=== PATIENT | male | born 1980 | race Caucasian/White ===

== ENCOUNTER 2017-06-19 13:16 | Emergency (ER) | payer OTHER, SELFPAY ==
[2017-06-19 14:32] LABS: #Basophils 0.1 thou/uL (0.0-0.2); #Eosinphils 0.2 thou/uL (0.0-0.7); #Lymphocytes 1.4 thou/uL (1.20-3.40); #Monocytes 0.9 thou/uL (0.11-0.59); #Neutrophils 5.6 thou/uL (1.40-6.50); %Basophils 0.7 % (0.0-1.0); %Eosinophils 2.8 % (0.0-10.0); %Lymphocytes 17.1 % (21.0-51.0); %Neutrophils 68.4 % (42.0-75.0); Hemoglobin 15.1 g/dL (14.0-18.0); Mean Corpuscular HGB CONC 34.3 g/dL (32.0-36.0); Mean Corpuscular Volume 93.2 fl (80.0-94.0); Mean Platelet Volume 7.7 fL (7.4-10.4); Platelet Count 180 thou/uL (130-400); RBC Distribution Width 12.1 % (11.5-14.5); Red Blood Cell (RBC) Count 4.72 mill/uL (4.70-6.10); White Blood Cell (WBC) Count 8.2 thou/uL (4.8-10.8)
--- NOTE | 2017-06-19 14:55 | RAD ---
CHEST TWO VIEWS: HISTORY: Cough. COMPARISON: 06/22/2011 FINDINGS: The cardiac silhouette and pulmonary vasculature are unremarkable. The mediastinum is midline. Lung s remain hyperinflated with flattening of the hemidiaphragms. No confluent air space consolidation, pneumothorax, or pleural fluid evident. IMPRESSION: Pulmonary hyperinflation is stable. No new abnormalities are apparent. POS: [facility]
[2017-06-19 14:58] LABS: ALT (SGPT) 25 U/L (8-55); AST (SGOT) 19 U/L (5-34); Albumin 4.2 g/dL (3.5-5.0); Alkaline Phosphatase 75 U/L (40-150); Anion Gap 9 mmol/L (10-20); BUN (Urea Nitrogen) 11 mg/dL (8.9-20.6); Bilirubin, Total 0.4 mg/dL (0.2-1.2); Calc. Creatinine Clearance 0 mL/min (70-130); Calcium 9.7 mg/dL (7.8-10.44); Carbon Dioxide 31 mmol/L (22-29); Chloride 102 mmol/L (98-107); Estimated GFR-MDRD 75; Globulin 2.6 g/dL (2.4-3.5); Glucose 88 mg/dL (70-105); Potassium 3.9 mmol/L (3.5-5.1); Protein, Total 6.8 g/dL (6.0-8.3); Sodium 138 mmol/L (136-145)
[2017-06-19 15:02] LABS: CKMB 2.1 ng/mL (0-6.6); Troponin I Less than 0.010 ng/mL (< 0.028)
[2017-06-19] MEDS ORDERED: Ketorolac Tromethamine 30 MG/ML VIAL ONE (15:28)
[2017-06-19] MEDS ORDERED: Ondansetron HCl/PF 4 MG/2 ML Vial ONE (15:28)
[2017-06-19] MEDS ORDERED: Dexamethasone 10 MG/ML VIAL ONE (16:22)
[2017-06-19] MEDS ORDERED: Acetaminophen/Codeine 30-300mg Tablet ONE (16:47)
== END 2017-06-19 16:55 | disposition home or self-care (01) ==
LOC: ERS 13:16
DX: J20.9 Acute bronchitis, unspecified (principal); R51 Headache; J45.909 Unspecified asthma, uncomplicated; F31.9 Bipolar disorder, unspecified; F41.9 Anxiety disorder, unspecified; F17.210 Nicotine dependence, cigarettes, uncomplicated; Z87.01 Personal history of pneumonia (recurrent)
CPT/HCPCS: 71046; 80053; 82553; 83735; 84484; 85025; 93005; 96374; 96375; J1100; J1885; J2405

== ENCOUNTER 2017-11-08 13:09 | Emergency (ER) | payer BC, SELFPAY ==
[2017-11-08] MEDS ORDERED: Ondansetron ODT 4 MG TAB ONE (14:00)
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
== END 2017-11-08 14:25 | disposition home or self-care (01) ==
LOC: ERS 13:09
DX: S61.452A Open bite of left hand, initial encounter (principal); J45.909 Unspecified asthma, uncomplicated; F41.9 Anxiety disorder, unspecified; F31.9 Bipolar disorder, unspecified; F17.210 Nicotine dependence, cigarettes, uncomplicated; W54.0XXA Bitten by dog, initial encounter
CPT/HCPCS: 99406; Q0162

== ENCOUNTER 2018-07-17 02:01 | Emergency (ER) | payer BC ==
[2018-07-17 02:47] LABS: #Basophils 0.1 thou/uL (0.0-0.2); #Eosinphils 0.4 thou/uL (0.0-0.7); #Lymphocytes 2.2 thou/uL (1.20-3.40); #Monocytes 0.7 thou/uL (0.11-0.59); #Neutrophils 3.9 thou/uL (1.40-6.50); %Basophils 0.8 % (0.0-1.0); %Eosinophils 5.5 % (0.0-10.0); %Monocytes 9.6 % (0.0-10.0); Hemoglobin 14.6 g/dL (14.0-18.0); Mean Corpuscular HGB CONC 34.6 g/dL (32.0-36.0); Mean Corpuscular Hemoglobin 32.5 pg (27.0-31.0); Mean Corpuscular Volume 93.7 fL (78.0-98.0); Mean Platelet Volume 8.7 fL (7.4-10.4); Platelet Count 165 thou/uL (130-400); RBC Distribution Width 11.5 % (11.5-14.5); Red Blood Cell (RBC) Count 4.49 mill/uL (4.70-6.10); White Blood Cell (WBC) Count 7.3 thou/uL (4.8-10.8)
[2018-07-17 03:03] LABS: ALT (SGPT) 17 U/L (8-55); AST (SGOT) 24 U/L (5-34); Albumin 4.3 g/dL (3.5-5.0); Alkaline Phosphatase 54 U/L (40-150); Anion Gap 13 mmol/L (10-20); BUN (Urea Nitrogen) 16 mg/dL (8.9-20.6); Bilirubin, Total 0.5 mg/dL (0.2-1.2); CK (CPK) 433 U/L (30-200); Calc. Creatinine Clearance 0 mL/min (70-130); Calcium 9.5 mg/dL (7.8-10.44); Carbon Dioxide 23 mmol/L (22-29); Chloride 106 mmol/L (98-107); Estimated GFR-MDRD 69; Globulin 2.3 g/dL (2.4-3.5); Glucose 108 mg/dL (70-105); Potassium 3.6 mmol/L (3.5-5.1); Protein, Total 6.6 g/dL (6.0-8.3); Sodium 138 mmol/L (136-145)
--- NOTE | 2018-07-17 07:48 | RAD ---
SINGLE VIEW OF THE CHEST: COMPARISON: 09/29/2010. HISTORY: Chest pain. FINDINGS: Single view of the chest shows a normal sized cardiomediastinal silhouette. There is no evidence of c onsolidation, mass, or pleural effusion. The bones are unremarkable. IMPRESSION: No evidence of acute cardiopulmonary disease. POS: [facility]
== END 2018-07-17 04:00 | disposition home or self-care (01) ==
LOC: ERS 02:01
DX: R07.9 Chest pain, unspecified (principal); F31.9 Bipolar disorder, unspecified; F41.9 Anxiety disorder, unspecified; J45.909 Unspecified asthma, uncomplicated; F17.210 Nicotine dependence, cigarettes, uncomplicated
CPT/HCPCS: 36415; 71045; 80053; 82550; 83690; 84484; 85025; 93005

== ENCOUNTER 2018-12-07 12:13 | Outpatient (CLI) | payer BC ==
--- NOTE | 2018-12-07 13:26 | RAD ---
LUMBAR SPINE 2 TO 3 VIEWS: INDICATION: Post laminectomy syndrome of the lumbar region. FINDINGS: There is mild end plate degenerative change at multiple levels of the lumbar spine without compressio n fracture or significant subluxation. Mild facet sclerosis at multiple levels is present. There is slight narrowing of the L4-5 disk space. IMPRESSION: Mild degenerative change of the lumbar spine, without acute compression fracture or subluxation. POS: [facility]
--- NOTE | 2018-12-07 13:38 | MRI ---
CERVICAL SPINE MRI NONCONTRAST: INDICATION: Cervical radicular pain. FINDINGS: Craniocervical junction is intact. Imaged posterior fossa contents are unremarkable. No significant central canal stenosis of C1-2. C2-3: There is a mild right asymmetric disk-osteophyte complex with slight narrowing of the central canal in the right paracentral zone and mild right ventral hemicord flattening. No high-grade forami nal stenosis. C3-4: Broad-based disk-osteophyte results in mild narrowing of the central canal. There is bilatera l uncinate process hypertrophy with mild left and minimal right neural foraminal narrowing. C4-5: There is a right asymmetric broad-based disk-osteophyte with mild narrowing of the central can al and mild ventral cord effacement. Mild to moderate right neural foraminal narrowing is present. There is no significant left foraminal stenosis. C5-6: Broad-based disk-osteophyte with mild narrowing of the central canal and mild ventral cord eff acement. There is mild right neural foraminal narrowing. No significant left foraminal stenosis. C6-7: Right asymmetric broad-based disk-osteophyte with mild narrowing of the central canal. There is moderate right and mild left neural foraminal narrowing. C7-T1: No high-grade central canal or neural foraminal stenosis. There is no significant intrinsic cord signal abnormality or expansile process of the cervical spinal cord identified. IMPRESSION: Multilevel mild degenerative disk changes which result in central canal stenosis, mild ventral cord e ffacement, and multilevel neural foraminal stenosis as outlined above. POS: [facility]
--- NOTE | 2018-12-07 14:12 | MRI ---
MRI LUMBAR SPINE NONCONTRAST: HISTORY: Status post laminectomy syndrome of the lumbar region. COMPARISON: Prior MRI performed in [place] is not available. FINDINGS: Appropriate T1 marrow signal intensity of the lumbar vertebrae. Lumbar spine vertebral body height i s maintained. No fracture. STIR hyperintensity to suggest vertebral body edema or ligamentous. Appropriate signal intensity of the paraspinal muscles. Appropriate signal intensity of the solid org ans. Conus medullaris terminates at the inferior aspect of L1. T12-L1:No significant central canal stenosis or significant neural foraminal narrowing. L1-L2:Adequate disc hydration. Minimal narrowing of the left subarticular zone due to posterior eleme nt hypertrophy and disc material. No significant obscuration the traversing left L2 nerve root. Right subarticular zone is unremarkable. No significant stenosis of the thecal sac. Bilaterally, neur al foramina are patent. L2-L3:Adequate disc hydration. Generalized disc bulge, ligament flavum thickening and facet result mi nimal central disc. Bilaterally, neural foramina pain. L3-L4:Adequate disc hydration. No significant loss of disc space height. Generalized disc bulge, liga ment flavum thickening and facet result in minimal central canal stenosis. Minimal flattening the ventral thecal sac. Small amount of fluid in the right facet joint. Bilaterally, neural foramina are patent. L4-L5:Desiccation with moderate loss of disc space height. Broad-based disc bulge, ligament flavum th ickening and facet result in mild central canal stenosis. There is narrowing of both subarticular zones with disc material abutting but does not obscuring the traversing right L5 nerve root. Partial obscuration the traversing left L5 nerve root. There is a T2 hyperintensity along the left ligament flavum measuring 0.5 cm. A small component of cystic degeneration is favored. Moderate right and [id number] left foraminal narrowing. L5-S1:Adequate disc hydration. No significant canal stenosis. Neural foramina are patent. IMPRESSION: Degenerative disc disease at L4-L5 as described above. There is mild central canal stenosis. Narrowin g of both subarticular zones, right greater than left. Partial obscuration of traversing left L5 nerve root. Transcribed Date/Time: 12/07/2018 3:17 PM
== END 2018-12-07 12:14 | disposition home or self-care (01) ==
LOC: BICMRI 12:13
PROVIDERS: ATTEND Family Medicine
DX: M96.1 Postlaminectomy syndrome, not elsewhere classified (principal); M47.816 Spondylosis without myelopathy or radiculopathy, lumbar region; M51.36 Other intervertebral disc degeneration, lumbar region; M48.061 Spinal stenosis, lumbar region without neurogenic claudication; M50.10 Cervical disc disorder with radiculopathy, unspecified cervical region; M48.02 Spinal stenosis, cervical region
CPT/HCPCS: 72100; 72141; 72148

== ENCOUNTER 2019-08-31 16:33 | Emergency (ER) | payer BC, SELFPAY ==
--- NOTE | 2019-08-31 17:25 | RAD ---
THREE VIEWS OF THE SACRUM/COCCYX 08/31/19 COMPARISON: None. HISTORY: Tailbone pain following a fall. FINDINGS: The pelvic ring appears intact. Mild degenerative changes of the pubic symphysis. No widening or the sacroiliac joints of the pubic symphysis. No displaced fracture or dislocation. IMPRESSION: No acute osseous abnormality. POS: [facility]
--- NOTE | 2019-08-31 17:26 | RAD ---
LUMBAR SPINE THREE VIEWS: 08/31/19 COMPARISON: None. HISTORY: Tailbone pain for one week after a fall. FINDINGS: Five views of the lumbar spine demonstrate intact pedicles with no anterolisthesis or retrolisthesis. No displaced fracture. IMPRESSION: No displaced fracture of the lumbar spine. POS: [facility]
[2019-08-31] MEDS ORDERED: Morphine 4 MG/ML VIAL ONE (17:29)
[2019-08-31] MEDS ORDERED: Ondansetron PF 4 MG/2 ML Vial ONE (17:29)
[2019-08-31] MEDS ORDERED: Lorazepam 2 MG/ML VIAL ONE ×2 (19:18→20:05)
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
== END 2019-08-31 22:34 | disposition home or self-care (01) ==
LOC: ERS 16:33
DX: S30.0XXA Contusion of lower back and pelvis, initial encounter (principal); M54.42 Lumbago with sciatica, left side; J45.909 Unspecified asthma, uncomplicated; F41.9 Anxiety disorder, unspecified; F31.9 Bipolar disorder, unspecified; F17.210 Nicotine dependence, cigarettes, uncomplicated; Z79.899 Other long term (current) drug therapy; W01.0XXA Fall on same level from slipping, tripping and stumbling without subsequent striking against object, initial encounter
CPT/HCPCS: 51798; 72100; 72148; 72220; 96374; 96375; 96376; J2060; J2270; J2405